=== PATIENT | male | born 2000 | race Caucasian/White ===

== ENCOUNTER 2021-07-24 23:01 | Emergency (ER) | payer OTHER ==
[~2021-07-24] VITALS: Ht 172.7 cm; Wt 59.0 kg
[2021-07-24] MEDS ORDERED: HYDROMORPHONE 1 MG/1 ML DISP.SYRIN ONE (23:27)
[2021-07-24] MEDS ORDERED: CARISOPRODOL 350 MG TABLET ONE (23:27)
[2021-07-24] MEDS ORDERED: DEXAMETHASONE SOD PHOSPHATE 10 MG/ML VIAL ONE (23:27)
[2021-07-24] MEDS ORDERED: HYDROMORPHONE 1 MG/1 ML DISP.SYRIN IM ONE (23:30)
[2021-07-24] MEDS ORDERED: DEXAMETHASONE SOD PHOSPHATE 4 MG/ML VIAL IM ONE (23:30)
[2021-07-24] MEDS ORDERED: CARISOPRODOL 350 MG TABLET PO ONE (23:30)
[2021-07-25] MEDS ORDERED: DIAZEPAM 5 MG/ML 2 ML DISP.SYRIN IM ONE (01:00)
[2021-07-25] MEDS ORDERED: DIAZEPAM 5 MG/ML 2 ML DISP.SYRIN ONE (01:03)
--- NOTE | 2021-07-25 03:06 | NUR ---
Patient discharged to home in stable condition. Written and verbal after care instructions given. Patient verbalizes understanding of instruction.
[2021-07-25] MEDS ORDERED: CARI350T PO (03:08)
[2021-07-25] MEDS ORDERED: PRED50TA PO (03:08)
[2021-07-25] MEDS ORDERED: IBUP-1957 PO (03:08)
[2021-07-25] MEDS ORDERED: HYDR-3972 PO (03:08)
[2021-07-25 03:12] VITALS: BP 135/70
== END 2021-07-25 03:12 | disposition home or self-care (01) ==
LOC: ER 23:08
DX: M62.830 Muscle spasm of back (principal); J45.909 Unspecified asthma, uncomplicated; Z60.2 Problems related to living alone; Z79.899 Other long term (current) drug therapy
CPT/HCPCS: 96372 ×3; 99285; J1100; J1170; J3360